=== PATIENT | female | born 1990 | race Asian ===

== ENCOUNTER 2021-07-07 10:01 | Emergency (ER) | payer OTHER, SELFPAY ==
[2021-07-07 10:18] VITALS: BP 90/68; PULSE 90; RESP 18; TEMP 37.1; O2SAT 99
--- NOTE | 2021-07-07 10:23 | ED.URI ---
HPI - URI/Sore Throat General Chief Complaint: Upper Respiratory Infection Stated Complaint: sorethroat/lt ear itching Time Seen by Provider: 07/07/21 10:26 Source: patient Mode of arrival: ambulatory Limitations: no limitations History of Present Illness HPI Narrative: 31-year-old female presented for complaint of sore throat and left ear itching for about 2 days. Denies cough, sob, sinus pressure/ congestion, headache, fatigue, n/v/d, fever or chills. Endorses sick contacts, her and child have been ill but COVID-negative. Not taking anything for sx. MD elicited complaint: cough Related Data Home Medications Medication Instructions Recorded Confirmed [id number] 3-fat com #1 1 cap PO 07/07/21 [Pre-Zaria Multivitamins/Minerals] Allergies Allergy/AdvReac Type Severity Reaction Status Date / Time No Known Allergies Allergy Verified 07/07/21 10:22 Review of Systems Review of Systems: CONSTITUTIONAL: Denies malaise, chills, sweats, fever. EYES: Denies visual changes, redness, or discharge. ENT: Endorses sore throat, Denies rhinorrhea, congestion, sinus pain, otalgia CARDIOVASCULAR: Denies chest pain, palpitations, or edema. RESPIRATORY: Denies cough, post nasal drainage dyspnea. GASTROINTESTINAL: Denies abdominal pain, nausea, vomiting, diarrhea SKIN: Denies rash or itching. MUSCULOSKELETAL: Denies myalgia. NEUROLOGIC: Denies headache. Exam Narrative: GENERAL: Well appearing HEAD: Normocephalic EYES: PERRLA, conjunctivae clear ENT: Mucous membranes moist. TM pearly carey with dull light reflex bilaterally; no tragal tenderness. Oropharynx erythematous without lesions. Tonsils enlarged and without exudate, a small pale patch to left tonsil is noted, no drooling, no hoarseness, no trismus, uvula midline. NECK: Supple. No lymphadenopathy CHEST: Clear to auscultation, breath sounds equal. No wheezing, rhonchi, rales, or stridor. No respiratory distress, speaks in full sentences. HEART: Regular rate and rhythm. No murmur heard. SKIN: Warm, dry, no rash. NEURO: Alert and oriented x3. PSYCH: Normal mood and affect Course Course Emergency Course: strep neg Patient is aware of diagnosis, understands and agrees to treatment plan. Anticipatory guidance given. Patient agrees to follow-up as directed and is aware of reasons to seek care at the emergency department. Portions of this record may have been created with voice recognition software Level of Care: Express Care Visit Vital Signs Vital signs: Vital Signs Temperature 98.7 F 07/07/21 10:18 Pulse Rate 90 07/07/21 10:18 Respiratory Rate 18 07/07/21 10:18 Blood Pressure 90/68 L 07/07/21 10:18 Pulse Oximetry 99 07/07/21 10:18 Temperature 98.7 F 07/07/21 10:18 Pulse Rate 90 07/07/21 10:18 Respiratory Rate 18 07/07/21 10:18 Blood Pressure 90/68 L 07/07/21 10:18 Pulse Oximetry 99 07/07/21 10:18 reviewed MDM - URI/Sore Throat Differential Diagnosis Differential diagnosis: Likely upper respiratory infection, otitis media, viral infection and pharyngitis Lab Data Attestation: I reviewed the patient's lab results. Discharge Plan Discharge Clinical Impression: Pharyngitis Qualifiers: Pharyngitis/tonsillitis etiology: unspecified etiology Qualified Code(s): J02.9 - Acute pharyngitis, unspecified Patient Disposition: Home, Self-Care Condition: Stable Instructions: Antibiotic Form, Pharyngitis (ED), Strep Throat (ED) Additional Instructions: Rapid strep swab was negative today You will be notified in a few days if the culture comes back positive for strep, and appropriate antibiotics will be called in at that time. if symptoms are due to a viral illness, it is not treated with antibiotics. Viral symptoms can be present for up to 10-14 days. Soft foods, cool liquids, Gargle with warm water twice a day. Take Tylenol for fever or pain. Rest and stay hydrated. Follow up with your PCP if symptoms are not im
== END 2021-07-07 10:43 | disposition home or self-care (01) ==
PROVIDERS: Emergency Provider Nurse Practitioner Family
DX: J02.9 Acute pharyngitis, unspecified (principal)
CPT/HCPCS: 87081; 87880; 99203; G0463